=== PATIENT | male | born 1995 | race Caucasian/White ===

== ENCOUNTER 2024-08-01 13:06 | Emergency (ER) | payer OTHER ==
[2024-08-01 13:21] VITALS: BP 123/78; PULSE 80; RESP 15; TEMP 98.1; BMI 28.5
== END 2024-08-01 14:04 | disposition home or self-care (01) ==
LOC: FER 13:06
DX: L03.116 Cellulitis of left lower limb (principal)
CPT/HCPCS: 87070; 87186; 87205; 99283-25